=== PATIENT | male | born 1965 | race Caucasian/White ===

== ENCOUNTER 2020-10-04 15:04 | Inpatient (IN) | payer MEDICAID ==
[~2020-10-04] VITALS: Ht 190.5 cm; Wt 136.4 kg
[~2020-10-04 15:04] MED LIST: LACT1CAP26 PO; LEVO750T21 PO; [UNRECOGNIZED DRUG - CODE] PO; st johns wort PO
[2020-10-04] MEDS ORDERED: diltiazem 5mg/ml 5ml inj. IV ONE ×2 (16:15→17:30)
[2020-10-04 16:21] LABS: BASOPHILS # (AUTO) 0.1 X10'3 (0-0.2); BASOPHILS % (AUTO) 0.5 % (0-1); EOSINOPHILS % (AUTO) 0.3 % (0-6); HEMOGLOBIN 14.8 g/dl (14.0-17.9); LYMPHOCYTES # (AUTO) 1.9 X10'3 (1.1-4.8); LYMPHOCYTES % (AUTO) 17.9 % (21-51); MEAN CORPUSCULAR HEMOGLOBIN 31.5 PG (27.0-31.0); MEAN CORPUSCULAR HGB CONC 33.7 g/dL (33.0-36.5); MEAN CORPUSCULAR VOLUME 93.5 FL (78-98); MEAN PLATELET VOLUME 10.6 FL (7.4-10.4); MONOCYTES # (AUTO) 0.8 X10'3 (0-0.9); MONOCYTES % (AUTO) 7.6 % (2-12); NEUTROPHILS # (AUTO) 7.9 X10'3 (1.8-7.7); NEUTROPHILS % (AUTO) 73.7 % (42-75); PLATELET COUNT 237 X10'3 (140-440); RED BLOOD COUNT 4.71 X10'6 (4.70-6.10); WHITE BLOOD COUNT 10.6 X10'3 (4.5-11.0)
[2020-10-04 16:26] LABS: ALANINE AMINOTRANSFERASE 25 U/L (12-78); ALBUMIN 3.2 G/DL (3.4-5.0); ALBUMIN/GLOBULIN RATIO 0.9 (1.1-1.5); ALKALINE PHOSPHATASE 75 IU/L (46-116); ANION GAP 12 (8-16); ASPARTATE AMINO TRANSFERASE 23 U/L (10-37); BILIRUBIN,TOTAL 1.1 MG/DL (0.1-1.0); BLOOD UREA NITROGEN 12 MG/DL (7-18); BUN/CREATININE RATIO 11.3 (5.4-32.0); CALCIUM 8.4 MG/DL (8.5-10.1); CHLORIDE 96 MMOL/L (99-107); CREATININE 1.06 MG/DL (0.60-1.10); GLUCOSE 124 MG/DL (70-104); POTASSIUM 4.1 MMOL/L (3.5-5.1); SODIUM 130 MMOL/L (135-145); TOTAL CARBON DIOXIDE 21.6 MMOL/L (24-32); TOTAL PROTEIN 6.7 G/DL (6.4-8.2); eGFR 72 ML/MIN
--- NOTE | 2020-10-04 17:12 | NUR ---
DR DINH MADE AWARE HR 120'S S/P CARDIZEM IVP (SEE EMAR). TO ENTER FURTHER ORDERS.
[2020-10-04 17:17] LABS: PLATELET ESTIMATE NORMAL
[2020-10-04 17:18] LABS: LARGE PLATELETS MODERATE
[2020-10-04] MEDS ORDERED: aspirin 325mg tablet PO ONE (17:50)
[2020-10-04] MEDS ORDERED: diltiazem-NS 100mg/100ml 100 ML IV SCH (18:05)
[2020-10-04] MEDS ORDERED: HYDROcodone/acetaminophen 5mg/325mg tablet PO PRN (21:35)
[2020-10-04] MEDS ORDERED: bisacodyl 10mg suppository rectal RC PRN (21:35)
[2020-10-04] MEDS ORDERED: mag hydrox/Alum hydrox/simeth 30ml oral suspension PO PRN (21:35)
[2020-10-04] MEDS ORDERED: morphine 2 MG/ML inj. syringe IV PRN ×2 (21:35)
[2020-10-04] MEDS ORDERED: HYDROmorphone inj. 0.5 MG/0.5 ML DISP.SYRIN IV PRN (21:35)
[2020-10-04] MEDS ORDERED: diphenhydrAMINE 50 mg/ml inj IV PRN (21:35)
[2020-10-04] MEDS ORDERED: ondansetron/PF 4mg/2ml inj IV PRN (21:35)
[2020-10-04] MEDS ORDERED: ondansetron 4mg rapidly disintigrating tab PO PRN (21:35)
[2020-10-04] MEDS ORDERED: HYDROcodone/acetaminophen 10/325mg tab PO PRN (21:35)
[2020-10-04] MEDS ORDERED: acetaminophen 325mg tablet PO PRN ×2 (21:35)
[2020-10-04] MEDS ORDERED: magnesium hydroxide 30ml (MOM) UD suspension PO PRN (21:35)
[2020-10-04] MEDS ORDERED: diphenhydrAMINE 25mg capsule PO PRN (21:35)
[2020-10-04] MEDS ORDERED: lisinopril 10 MG tablet PO ONE (21:40)
[2020-10-04] MEDS ORDERED: nitroGLYCERIN 0.4mg SUBLingual tab SL PRN (21:40)
[2020-10-04] MEDS ORDERED: heparin 10,000 units/1 ML INJ IV PRN (21:45)
[2020-10-04] MEDS ORDERED: heparin 25,000 UNIT/250ml bag 250 ML IV SCH (21:45)
[2020-10-04] MEDS ORDERED: heparin 10,000 units/1 ML INJ IV ONE (21:45)
[2020-10-04 21:54] LABS: HEMOGLOBIN A1C 6.5 % (4.5-6.2)
[2020-10-04 22:06] LABS: BASOPHILS # (AUTO) 0.1 X10'3 (0-0.2); BASOPHILS % (AUTO) 0.5 % (0-1); EOSINOPHILS % (AUTO) 0.3 % (0-6); HEMATOCRIT 42.8 % (42.0-52.0); HEMOGLOBIN 14.2 g/dl (14.0-17.9); LYMPHOCYTES # (AUTO) 2.5 X10'3 (1.1-4.8); LYMPHOCYTES % (AUTO) 22.6 % (21-51); MEAN CORPUSCULAR HEMOGLOBIN 31.5 PG (27.0-31.0); MEAN CORPUSCULAR HGB CONC 33.3 g/dL (33.0-36.5); MEAN CORPUSCULAR VOLUME 94.4 FL (78-98); MEAN PLATELET VOLUME 10.2 FL (7.4-10.4); MONOCYTES % (AUTO) 8.9 % (2-12); NEUTROPHILS # (AUTO) 7.5 X10'3 (1.8-7.7); NEUTROPHILS % (AUTO) 67.7 % (42-75); PLATELET COUNT 236 X10'3 (140-440); RED BLOOD COUNT 4.53 X10'6 (4.70-6.10); RED CELL DISTRIBUTION WIDTH 13.7 % (11.5-14.5); WHITE BLOOD COUNT 11.1 X10'3 (4.5-11.0)
[2020-10-04 22:08] LABS: CREATINE KINASE 113 U/L (39-308); LIPASE 162 U/L (73-393); MAGNESIUM 1.9 MG/DL (1.5-2.4); PHOSPHORUS 3.8 MG/DL (2.3-4.5)
[2020-10-04 22:19] LABS: PARTIAL THROMBOPLASTIN TIME 24 SECONDS (22-32)
[2020-10-04 22:32] LABS: D-DIMER 1.04 MG/L FEU (0-0.50)
--- NOTE | 2020-10-04 23:06 | NUR ---
2ND IV PLACED (20 G L WRIST), HEPARIN GTT STARTED PER PROTOCOL, PLACED ON HOSPITAL BED.
[2020-10-04] MEDS: temazepam 15mg capsule PO PRN (23:24)
[2020-10-05] VITALS (9 sets, daily range): BP systolic 91–148; BP diastolic 55–92
[2020-10-05 03:16] LABS: BASOPHILS # (AUTO) 0.1 X10'3 (0-0.2); BASOPHILS % (AUTO) 0.9 % (0-1); EOSINOPHILS # (AUTO) 0.1 X10'3 (0-0.9); EOSINOPHILS % (AUTO) 0.6 % (0-6); HEMATOCRIT 41.7 % (42.0-52.0); HEMOGLOBIN 13.8 g/dl (14.0-17.9); LYMPHOCYTES # (AUTO) 2.6 X10'3 (1.1-4.8); MEAN CORPUSCULAR HEMOGLOBIN 31.6 PG (27.0-31.0); MEAN CORPUSCULAR VOLUME 95.5 FL (78-98); MEAN PLATELET VOLUME 10.2 FL (7.4-10.4); MONOCYTES # (AUTO) 0.8 X10'3 (0-0.9); MONOCYTES % (AUTO) 8.3 % (2-12); NEUTROPHILS # (AUTO) 6.3 X10'3 (1.8-7.7); NEUTROPHILS % (AUTO) 64.2 % (42-75); PLATELET COUNT 202 X10'3 (140-440); RED BLOOD COUNT 4.36 X10'6 (4.70-6.10); RED CELL DISTRIBUTION WIDTH 13.7 % (11.5-14.5); WHITE BLOOD COUNT 9.9 X10'3 (4.5-11.0)
[2020-10-05 03:39] LABS: ALANINE AMINOTRANSFERASE 23 U/L (12-78); ALBUMIN 3.1 G/DL (3.4-5.0); ALKALINE PHOSPHATASE 70 IU/L (46-116); ANION GAP 7 (8-16); ASPARTATE AMINO TRANSFERASE 23 U/L (10-37); BLOOD UREA NITROGEN 12 MG/DL (7-18); CALCIUM 8.1 MG/DL (8.5-10.1); CHLORIDE 99 MMOL/L (99-107); CREATININE 1.09 MG/DL (0.60-1.10); GLUCOSE 106 MG/DL (70-104); SODIUM 131 MMOL/L (135-145); TOTAL CARBON DIOXIDE 24.6 MMOL/L (24-32); TOTAL PROTEIN 6.2 G/DL (6.4-8.2); eGFR 70 ML/MIN
[2020-10-05 03:46] LABS: CHOL/HDL RATIO 4.2 (0.00-4.99); CHOLESTEROL 108 MG/DL (0-200); HDL CHOLESTEROL 26 MG/DL (35-60); LDL CHOLESTEROL 69 MG/DL (50-100); TRIGLYCERIDES 65 MG/DL (20-135)
--- NOTE | 2020-10-05 06:30 | NUR ---
Patient in room PCU 3026. I have received report from LIVIER Condon and had the opportunity to ask questions and assume patient care.
--- NOTE | 2020-10-05 06:55 | NUR ---
Patient in room PCU 3026. I have received report from LIVIER Condon and had the opportunity to ask questions and assume patient care.
[2020-10-05] MEDS: docusate sod 100mg capsule PO SCH ×2 (08:00→19:41)
[2020-10-05] MEDS: furosemide 10 MG/1 ML 10ml inj IV SCH ×2 (08:34→19:15)
[2020-10-05] MEDS: pantoprazole 40mg Tablet.DR PO SCH (08:35)
[2020-10-05] MEDS: atorvastatin 20mg tablet PO SCH (08:35)
--- NOTE | 2020-10-05 09:16 | NUR ---
[id number] MESSAGE: re [id number] Dipak Carmen; would you still like to continue Cardizem drip? current BP: 138/82 HR: 82. Anna [phone]
[2020-10-05] MEDS ORDERED: diltiazem-D5W 125mg/125ml 125 ML IV SCH (09:20)
--- NOTE | 2020-10-05 09:22 | NUR ---
received order from [facility] to continues 5mcg/hr Diltiazem and cancel Diltiazerm titration.
[2020-10-05] MEDS ORDERED: diltiazem-NS 100mg/100ml 100 ML IV SCH (09:27)
--- NOTE | 2020-10-05 10:04 | NUR ---
Received new order to discontinue Heparin Gtt from Jewell Ozuna NP.
[2020-10-05] MEDS: metoprolol succinate 25mg (24-HOUR) SR. Tablet PO SCH (13:57)
[2020-10-05] MEDS: losartan 25mg tablet PO SCH (13:57)
[2020-10-05] MEDS: amiodarone 200mg tablet PO SCH ×2 (13:57→19:15)
[2020-10-05] MEDS ORDERED: dextrose ORAL solution 15 GM/59 ML bottle PO PRN ×2 (18:00)
[2020-10-05] MEDS ORDERED: glucagon, human recombinant 1mg kit SUBCUT PRN (18:00)
[2020-10-05] MEDS ORDERED: insulin Lispro (HumaLOG) vial - multi-dose SQ SCH (18:00)
[2020-10-05] MEDS ORDERED: MESSAGE TO PHARMACY PO ONE (18:00)
[2020-10-05] MEDS ORDERED: dextrose 50%-water 50ml dispensing syringe IV PRN ×2 (18:00)
--- NOTE | 2020-10-05 18:27 | NUR ---
Problems reprioritized. Patient report given, questions answered & plan of care reviewed with LIVIER Lerner. Pt sitting up in bed, eating dinner independently. All pt needs met at this time.
--- NOTE | 2020-10-05 18:29 | NUR ---
Problems reprioritized. Patient report given, questions answered & plan of care reviewed with LIVIER Lerner.
--- NOTE | 2020-10-05 18:30 | NUR ---
Patient in room PCU 3026. I have received report from Elizabeth MAIER & Anna MAIER and had the opportunity to ask questions and assume patient care.
[2020-10-05] MEDS: apixaban 5mg tablet PO SCH (19:15)
[2020-10-05] MEDS: insulin glargine (Lantus) pen - multi-dose SQ SCH (21:00)
[2020-10-05] MEDS: temazepam 15mg capsule PO PRN (23:27)
[2020-10-06 02:00] VITALS: BP 106/69
--- NOTE | 2020-10-06 06:15 | NUR ---
Patient in room PCU 3026. I have received report from Eduarda MAIER at bedside and had the opportunity to ask questions and assume patient care.
--- NOTE | 2020-10-06 06:29 | NUR ---
Problems reprioritized. Patient report given, questions answered & plan of care reviewed with Maura MAIER at bedside.
[2020-10-06 06:33] LABS: BASOPHILS # (AUTO) 0.1 X10'3 (0-0.2); BASOPHILS % (AUTO) 0.6 % (0-1); EOSINOPHILS # (AUTO) 0.1 X10'3 (0-0.9); EOSINOPHILS % (AUTO) 1.1 % (0-6); HEMATOCRIT 42.9 % (42.0-52.0); HEMOGLOBIN 14.3 g/dl (14.0-17.9); LYMPHOCYTES # (AUTO) 2.4 X10'3 (1.1-4.8); LYMPHOCYTES % (AUTO) 21.9 % (21-51); MEAN CORPUSCULAR HGB CONC 33.3 g/dL (33.0-36.5); MEAN CORPUSCULAR VOLUME 95.8 FL (78-98); MEAN PLATELET VOLUME 10.7 FL (7.4-10.4); MONOCYTES % (AUTO) 9.6 % (2-12); NEUTROPHILS # (AUTO) 7.3 X10'3 (1.8-7.7); NEUTROPHILS % (AUTO) 66.8 % (42-75); PLATELET COUNT 216 X10'3 (140-440); RED BLOOD COUNT 4.47 X10'6 (4.70-6.10); RED CELL DISTRIBUTION WIDTH 13.6 % (11.5-14.5); WHITE BLOOD COUNT 10.9 X10'3 (4.5-11.0)
[2020-10-06 06:58] LABS: ALANINE AMINOTRANSFERASE 27 U/L (12-78); ALBUMIN 3.1 G/DL (3.4-5.0); ALBUMIN/GLOBULIN RATIO 0.9 (1.1-1.5); ALKALINE PHOSPHATASE 69 IU/L (46-116); ANION GAP 11 (8-16); ASPARTATE AMINO TRANSFERASE 24 U/L (10-37); BILIRUBIN,TOTAL 0.9 MG/DL (0.1-1.0); BLOOD UREA NITROGEN 16 MG/DL (7-18); BUN/CREATININE RATIO 13.1 (5.4-32.0); CALCIUM 8.2 MG/DL (8.5-10.1); CHLORIDE 94 MMOL/L (99-107); CREATININE 1.22 MG/DL (0.60-1.10); GLUCOSE 98 MG/DL (70-104); POTASSIUM 4.5 MMOL/L (3.5-5.1); SODIUM 130 MMOL/L (135-145); TOTAL CARBON DIOXIDE 25.1 MMOL/L (24-32); TOTAL PROTEIN 6.5 G/DL (6.4-8.2); eGFR 61 ML/MIN
[2020-10-06 07:00] VITALS: BP 129/80
[2020-10-06] MEDS: apixaban 5mg tablet PO SCH ×2 (07:48→20:40)
[2020-10-06] MEDS: metoprolol succinate 25mg (24-HOUR) SR. Tablet PO SCH (07:48)
[2020-10-06] MEDS: losartan 25mg tablet PO SCH (07:49)
[2020-10-06] MEDS: amiodarone 200mg tablet PO SCH ×2 (07:49→20:40)
[2020-10-06] MEDS: atorvastatin 20mg tablet PO SCH (07:49)
[2020-10-06] MEDS: pantoprazole 40mg Tablet.DR PO SCH (07:49)
[2020-10-06] MEDS: furosemide 10 MG/1 ML 10ml inj IV SCH (07:51)
[2020-10-06] MEDS: docusate sod 100mg capsule PO SCH ×2 (07:51→20:00)
--- NOTE | 2020-10-06 07:57 | NUR ---
DM consult: Pt with A1c 6.5%, DM education not warranted at this time. will continue to follow. Addendum: 10/06/20 at [address] Amended: Links added.
--- NOTE | 2020-10-06 10:21 | NUR ---
paged Dr. Arechiga PAGER ID: [phone] MESSAGE: [facility] [address] family member Fernie Salas son-in-law [phone] would like for you to call him and give him an update on patients care plan. Maura MAIER [phone]
[2020-10-06 11:00] VITALS: BP 123/66
[2020-10-06 15:00] VITALS: BP 109/61
[2020-10-06 18:00] VITALS: BP 100/72
--- NOTE | 2020-10-06 18:23 | NUR ---
Problems reprioritized. Patient report given, questions answered & plan of care reviewed with Eduarda RN at bedside.
--- NOTE | 2020-10-06 18:28 | NUR ---
Patient in room PCU 3026. I have received report from Maura MAIER at bedside and had the opportunity to ask questions and assume patient care.
[2020-10-06] MEDS: insulin glargine (Lantus) pen - multi-dose SQ SCH (21:00)
[2020-10-06 22:00] VITALS: BP 115/85
--- NOTE | 2020-10-07 01:52 | NUR ---
Called to Dr. Linton regarding to patient no longer has an IV access. Patient currently doesn't have any IV meds, all PO & patient will going home tomorrow with his life vest. MD aware, no new order at this time.
[2020-10-07 02:00] VITALS: BP 126/62
[2020-10-07 06:00] VITALS: BP 108/81
--- NOTE | 2020-10-07 06:00 | NUR ---
life vest on, pt sitting up in bed waiting for breakfast
[2020-10-07 06:10] LABS: BASOPHILS # (AUTO) 0.1 X10'3 (0-0.2); BASOPHILS % (AUTO) 0.6 % (0-1); EOSINOPHILS # (AUTO) 0.1 X10'3 (0-0.9); EOSINOPHILS % (AUTO) 0.5 % (0-6); HEMATOCRIT 43.5 % (42.0-52.0); HEMOGLOBIN 14.8 g/dl (14.0-17.9); LYMPHOCYTES # (AUTO) 2.3 X10'3 (1.1-4.8); LYMPHOCYTES % (AUTO) 21.2 % (21-51); MEAN CORPUSCULAR HEMOGLOBIN 31.7 PG (27.0-31.0); MEAN CORPUSCULAR VOLUME 93.4 FL (78-98); MONOCYTES # (AUTO) 0.9 X10'3 (0-0.9); MONOCYTES % (AUTO) 8.3 % (2-12); NEUTROPHILS # (AUTO) 7.5 X10'3 (1.8-7.7); NEUTROPHILS % (AUTO) 69.4 % (42-75); PLATELET COUNT 240 X10'3 (140-440); RED BLOOD COUNT 4.66 X10'6 (4.70-6.10); RED CELL DISTRIBUTION WIDTH 13.5 % (11.5-14.5); WHITE BLOOD COUNT 10.8 X10'3 (4.5-11.0)
[2020-10-07 06:27] LABS: ALANINE AMINOTRANSFERASE 30 U/L (12-78); ALBUMIN 3.2 G/DL (3.4-5.0); ALKALINE PHOSPHATASE 68 IU/L (46-116); ANION GAP 13 (8-16); ASPARTATE AMINO TRANSFERASE 31 U/L (10-37); BILIRUBIN,TOTAL 1.2 MG/DL (0.1-1.0); BLOOD UREA NITROGEN 20 MG/DL (7-18); BUN/CREATININE RATIO 16.9 (5.4-32.0); CALCIUM 7.8 MG/DL (8.5-10.1); CHLORIDE 89 MMOL/L (99-107); CREATININE 1.18 MG/DL (0.60-1.10); GLUCOSE 94 MG/DL (70-104); POTASSIUM 4.5 MMOL/L (3.5-5.1); SODIUM 123 MMOL/L (135-145); TOTAL CARBON DIOXIDE 21.5 MMOL/L (24-32); TOTAL PROTEIN 6.5 G/DL (6.4-8.2); eGFR 64 ML/MIN
--- NOTE | 2020-10-07 06:30 | NUR ---
Problems reprioritized. Patient report given, questions answered & plan of care reviewed with Efra MAIER at bedside.
[2020-10-07] MEDS: metoprolol succinate 25mg (24-HOUR) SR. Tablet PO SCH (08:50)
[2020-10-07] MEDS: atorvastatin 20mg tablet PO SCH (08:50)
[2020-10-07] MEDS: amiodarone 200mg tablet PO SCH ×2 (08:50→17:19)
[2020-10-07] MEDS: apixaban 5mg tablet PO SCH ×2 (08:54→17:19)
[2020-10-07] MEDS: losartan 25mg tablet PO SCH (08:54)
[2020-10-07] MEDS ORDERED: normal saline 1000ml 1,000 ML IV SCH (08:55)
[2020-10-07] MEDS: pantoprazole 40mg Tablet.DR PO SCH (08:56)
[2020-10-07 09:32] LABS: LARGE PLATELETS FEW; PLATELET ESTIMATE NORMAL
--- NOTE | 2020-10-07 10:50 | NUR ---
aprox this time contacted md guido to clarify new order. received phone call and attempts to establish IV access started. met with md at bedside shortly after phone call. 22g placed after multiple attempts by break relief nurse. ns ivf running at 200/hr.
[2020-10-07 11:00] VITALS: BP 120/87
[2020-10-07 15:00] VITALS: BP 111/66
--- NOTE | 2020-10-07 16:08 | NUR ---
MD Arechiga called , ordered to give remaining 250ml NS IVF " wide open " to complete the liter. LS are clear,pt deny SOB.
[2020-10-07 16:40] LABS: ALBUMIN 3.3 G/DL (3.4-5.0); ANION GAP 10 (8-16); BLOOD UREA NITROGEN 19 MG/DL (7-18); BUN/CREATININE RATIO 15.7 (5.4-32.0); CALCIUM 7.5 MG/DL (8.5-10.1); CHLORIDE 91 MMOL/L (99-107); CREATININE 1.21 MG/DL (0.60-1.10); GLUCOSE 98 MG/DL (70-104); POTASSIUM 4.5 MMOL/L (3.5-5.1); SODIUM 124 MMOL/L (135-145); TOTAL CARBON DIOXIDE 22.8 MMOL/L (24-32); eGFR 62 ML/MIN
--- NOTE | 2020-10-07 16:59 | NUR ---
Na lab results reviewed, md ugido present and aware of Na value. pt is insistant on discharging this evening and says" i feel fine, i've felt fine all day" MD Guido edu pt agreed to discharge pt home if he agree's to drink 4 or 5 bottles of gatoraide between tonight and his lab appointment tomorrow at 7am at [facility]. Pt agreed to these things. I heard him call his and ask her to go buy " 5 or 6 bottles of gatoraid".
[2020-10-07] MEDS ORDERED: AMIO200T67 PO (17:09)
[2020-10-07] MEDS ORDERED: LOSA25TA41 PO (17:09)
[2020-10-07] MEDS ORDERED: APIX5TAB3 PO (17:09)
[2020-10-07] MEDS ORDERED: METO-395 PO (17:09)
[2020-10-07] MEDS ORDERED: METF-950 PO (17:09)
--- NOTE | 2020-10-07 18:06 | NUR ---
disch to home now. discussed disch papers at length with pt, plan to f/u with labs in AM for Na level. life vest on and all belongings accounted for. to car via w/c a/ox4 stable, amb in room all day
== END 2020-10-07 18:00 | disposition home or self-care (01) | DRG 201 ==
LOC: ER 15:05 → UNDOADMIN 21:35 → ED HOLD 21:35 → PCU 3S 10-05 00:54 → ED HOLD 10-05 00:54
PROVIDERS: ADMIT Family Medicine; ATTEND Family Medicine
DX: I48.91 Unspecified atrial fibrillation (principal); I50.43 Acute on chronic combined systolic (congestive) and diastolic (congestive) heart failure; I21.A1 Myocardial infarction type 2; E87.2 Acidosis; E87.1 Hypo-osmolality and hyponatremia; I42.0 Dilated cardiomyopathy; I11.0 Hypertensive heart disease with heart failure; E11.9 Type 2 diabetes mellitus without complications; E66.9 Obesity, unspecified; I34.0 Nonrheumatic mitral (valve) insufficiency; I48.92 Unspecified atrial flutter; Z79.01 Long term (current) use of anticoagulants; Z79.84 Long term (current) use of oral hypoglycemic drugs; Z79.899 Other long term (current) drug therapy; Z82.49 Family history of ischemic heart disease and other diseases of the circulatory system; Z90.49 Acquired absence of other specified parts of digestive tract; Z79.82 Long term (current) use of aspirin; Z89.431 Acquired absence of right foot; Z68.37 Body mass index [BMI] 37.0-37.9, adult
CPT/HCPCS: 36415; 71045; 80048; 80053; 80061; 82550; 82948; 83036; 83690; 83735; 83880; 84100; 84443; 84484; 85008; 85025; 85379; 85610; 85730; 87081; 93005; 93306; 96374; 96376; 99285; G0378; J1644; J1815; J1940; J3490; J7030; Q0163